=== PATIENT | male | born 1955 | race Caucasian/White ===

== ENCOUNTER → 2018-01-17 | Outpatient (CLI) | payer OTHER ==
--- NOTE | 2018-01-17 19:12 | ECHOF ---
Referral Reason:I25.10 Atherosclerotic heart disease of [place] coronary neri MEASUREMENTS -------- HEIGHT: 182.9 cm WEIGHT: 122.5 kg BP: IVSd: 1.1 cm (0.6 - 1.1) LVIDd: 4.6 cm (3.9 - 5.3) LVPWd: 1.1 cm (0.6 - 1.1) IVSs: 1.7 cm LVIDs: 3.3 cm LVPWs: 1.3 cm LAESV Index (A-L): 48.26 ml/m Ao Diam: 4.0 cm (2.0 - 3.7) AV Cusp: 2.5 cm (1.5 - 2.6) LA Diam: 2.6 cm (2.7 - 3.8) MV EXCURSION: 18.221 mm (> 18.000) MV EF SLOPE: 223 mm/s (70 - 150) MV E Justino: 0.95 m/s MV DecT: 471 ms MV A Justino: 1.22 m/s MV E/A Ratio: 0.78 FINDINGS -------- Sinus rhythm with extra systolic beats. This was a technically difficult study with suboptimal views. The left ventricular size is normal. There is mild concentric left ventricular hypertrophy. Overa ll left ventricular systolic function is low-normal with, an EF between 50 - 55 %. The RV was not well visualized. LA is severely dilated >40 ml/m2 The right atrium was not well visualized. 3 ml of Lumason was utilized for enhancement of images. There is mild aortic valve sclerosis. There is no evidence of aortic regurgitation. There is no e vidence of aortic stenosis. Mild mitral annular calcification present. There is trace to mild mitral regurgitation. Trace tricuspid regurgitation present. The pulmonic valve was not well visualized. The aortic root size is normal. IVC Not well visulized. There is no pericardial effusion. CONCLUSIONS -------- 1. Sinus rhythm with extra systolic beats. 2. This was a technically difficult study with suboptimal views. 3. The left ventricular size is normal. 4. There is mild concentric left ventricular hypertrophy. 5. Overall left ventricular systolic function is low-normal with, an EF between 50 - 55 %. 6. The RV was not well visualized. 7. LA is severely dilated >40 ml/m2 8. The right atrium was not well visualized. 9. 3 ml of Lumason was utilized for enhancement of images. 10. There is mild aortic valve sclerosis. 11. Mild mitral annular calcification present. 12. There is trace to mild mitral regurgitation. 13. Trace tricuspid regurgitation present. 14. The pulmonic valve was not well visualized. 15. The aortic root size is normal. 16. IVC Not well visulized. 17. There is no pericardial effusion. VISUAL MERCHANDISING DIRECTOR: Grey Yanes RDCS
== END | disposition home or self-care (01) ==
LOC: RADECHMAIN 13:02
PROVIDERS: ATTEND Family Medicine
DX: I08.0 Rheumatic disorders of both mitral and aortic valves (principal); I25.10 Atherosclerotic heart disease of native coronary artery without angina pectoris
CPT/HCPCS: 93306; Q9950

== ENCOUNTER → 2021-11-11 | Outpatient (CLI) | payer MEDICAID ==
--- NOTE | 2021-11-11 13:35 | CT ---
EXAMINATION TYPE: CT abdomen pelvis wo con CT DLP: 1130 mGycm, Automated exposure control for dose reduction was used. DATE OF EXAM: 11/11/2021 1:23 PM COMPARISON: None. CLINICAL INDICATION:Male, 66 years old with history of R10.9 abd pain; right flank pain TECHNIQUE: Renal stone protocol CT of the abdomen and pelvis without IV or oral contrast. Lack of IV or oral contrast limits evaluation of solid and hollow organ viscera. Coronal and sagittal reformats were performed. FINDINGS: LOWER CHEST: Bibasilar scarring and/or atelectasis. Coronary artery calcifications and/or stents. ABDOMEN LIVER: Diffusely hypoattenuating parenchyma. No suspicious lesion within the limitations of a noncont rast exam. GALLBLADDER AND BILE DUCTS: Unremarkable. PANCREAS: Unremarkable noncontrast appearance. SPLEEN: Unremarkable noncontrast appearance. ADRENAL GLANDS: Unremarkable noncontrast appearance. KIDNEYS AND URETERS: No hydronephrosis. Right superior pole 7.5 cm cyst. Subcentimeter hypodense focu s within its peripheral left kidney is too small to characterize. Bilateral nonobstructive renal calc alvin with largest on the right measuring 5 mm and the largest on the left measuring 3 mm. No ureteral calculi. No perinephric fat stranding or fluid collections. PELVIS BLADDER: Incompletely distended but grossly unremarkable. REPRODUCTIVE: Unremarkable. ABDOMEN & PELVIS STOMACH AND BOWEL: Stomach and duodenum are unremarkable. Scattered colonic diverticulosis without ev idence for acute diverticulitis. The appendix is within normal limits. No evidence of bowel obstructi on. PERITONEUM: No evidence of pneumoperitoneum or free fluid. VASCULATURE: Mild atherosclerotic calcifications are present throughout the abdominal aorta and its b ranches. No evidence of aortic aneurysm. MUSCULOSKELETAL: No acute osseous abnormalities. Median sternotomy wires. Multilevel degenerative amauri nges visualized spine. Mild retrolisthesis of L2 on L3 and grade 1 anterolisthesis of L4 on L5 withou t evidence of pars defects. LYMPH NODES: No gross evidence for lymphadenopathy. SOFT TISSUE/ABDOMINAL WALL: Unremarkable IMPRESSION: 1. No acute abdominal/pelvic process. 2. Nonobstructive bilateral renal calculi.
== END | disposition home or self-care (01) ==
LOC: RADCTMAIN 12:42
PROVIDERS: ATTEND Family Medicine
DX: R10.9 Unspecified abdominal pain (principal)
CPT/HCPCS: 74176

== ENCOUNTER → 2024-05-03 | Outpatient (CLI) | payer MEDICARE, OTHER ==
--- NOTE | 2024-05-03 11:59 | US ---
EXAMINATION TYPE: US liver DATE OF EXAM: 05/03/2024 COMPARISON: NONE CLINICAL INDICATION: Male, 68 years old with history of K76.89 OTHER SPECIFIED DISEASES OF LIVER; on and off discomfort within, ruq, known renal cyst TECHNIQUE: Grayscale and color Doppler imaging of the right upper quadrant was performed. FINDINGS: EXAM MEASUREMENTS: Liver Length: 17.8cm, normal less than 15.5 cm Gallbladder Wall: 0.2cm CBD: 0.6 cm Right Kidney: 9.2 x 4.7 x 5.5 cm Pancreas: portion seen appear wnl Liver: difficult to penetrate Gallbladder: wnl Evidence for sonographic Brown's sign: no CBD: wnl Right Kidney: mid pole cyst = 7.8 x 8.5 x 7.8cm IMPRESSION: 1. Mild hepatomegaly. 2. Large right mid renal cortical cyst [facility] Marissa Jackson, , 05/03/2024 11:56 AM
== END | disposition home or self-care (01) ==
LOC: RADUSWWP 09:21
PROVIDERS: ATTEND Family Medicine
DX: K76.89 Other specified diseases of liver (principal); R16.0 Hepatomegaly, not elsewhere classified; N28.1 Cyst of kidney, acquired
CPT/HCPCS: 76705

== ENCOUNTER → 2024-06-28 | Outpatient (CLI) | payer MEDICARE, OTHER | LOC: NEUROMAIN 07:36 | PROVIDERS: ATTEND Psychiatry & Neurology Neurology | DX: R55 Syncope and collapse (principal) | CPT/HCPCS: 95816 ==